=== PATIENT | female | born 1980 | race Caucasian/White ===

== ENCOUNTER 2018-01-09 11:12 | Emergency (ER) | payer OTHER ==
[~2018-01-09] VITALS: Ht 157.5 cm; Wt 81.2 kg
[~2018-01-09 11:12] MED LIST: GABA100 PO; STOMUL; VENL37.5 PO; ZIPR20
[2018-01-09] MEDS ORDERED: FLUO10 PO (11:21)
[2018-01-09] MEDS ORDERED: GABA100 PO (11:21)
[2018-01-09] MEDS ORDERED: ALBU90OI INH ×2 (11:37→11:53)
[2018-01-09 11:50] LABS: Influenza A Negative (NEGATIVE); Influenza B Negative (NEGATIVE)
[2018-01-09] MEDS ORDERED: BENZ100A PO (11:53)
[2018-01-09] MEDS ORDERED: Pseudoephedrine30 MG PO (11:53)
== END 2018-01-09 11:58 | disposition home or self-care (01) ==
LOC: ER 11:12
PROVIDERS: Psychiatry & Neurology Psychiatry
DX: J06.9 Acute upper respiratory infection, unspecified (principal); F20.9 Schizophrenia, unspecified; Z79.899 Other long term (current) drug therapy; Z87.891 Personal history of nicotine dependence
CPT/HCPCS: 71046; 87804; 94640; 99284

== ENCOUNTER 2018-01-19 09:41 | Day surgery (SDC) | payer OTHER ==
[~2018-01-19 09:41] MED LIST changes: +ALBU90OI INH; +BENZ100A PO; +FLUO10 PO; +Pseudoephedrine30 MG PO
== END 2018-01-19 22:38 | disposition home or self-care (01) ==
LOC: RAD 09:41 → MRI 11:00 → RAD 22:38
PROC: BQ31ZZZ Magnetic Resonance Imaging (MRI) of Left Hip (ICD-10-PCS; principal; 2018-01-19)
DX: M85.68 Other cyst of bone, other site (principal); M24.852 Other specific joint derangements of left hip, not elsewhere classified
CPT/HCPCS: 20610; 73722; 77002; A9577; Q9967

== ENCOUNTER 2018-07-28 08:59 | Emergency (ER) | payer OTHER ==
[~2018-07-28] VITALS: Ht 157.5 cm; Wt 81.7 kg
[2018-07-28] MEDS ORDERED: QVAR REDIHALE10.6 G1 (09:50)
[2018-07-28] MEDS ORDERED: AZIT250 PO (10:37)
[2018-07-28] MEDS ORDERED: Prednisone20 MG PO (10:37)
== END 2018-07-28 11:15 | disposition home or self-care (01) ==
LOC: ER 08:59
DX: J45.901 Unspecified asthma with (acute) exacerbation (principal); F20.9 Schizophrenia, unspecified; Z79.899 Other long term (current) drug therapy; Z79.51 Long term (current) use of inhaled steroids; Z87.891 Personal history of nicotine dependence
CPT/HCPCS: 71046; 94644

== ENCOUNTER 2018-08-03 09:51 | Emergency (ER) | payer OTHER ==
[~2018-08-03] VITALS: Ht 157.5 cm; Wt 82.5 kg
[~2018-08-03 09:51] MED LIST changes: +AZIT250 PO; +Prednisone20 MG PO; +QVAR REDIHALE10.6 G1
[2018-08-03] MEDS ORDERED: PRAZ2 PO (10:15)
[2018-08-03 11:10] LABS: Calcium, Ionized (POC) 1.17 mmol/L (1.10-1.46); Chloride (POC) 103 mmol/L (98-108); Creatinine (POC) 0.7 mg/dL (0.6-1.0); Glucose (ISTAT POC) 92 mg/dL (70-99); Hemoglobin (POC) 12.6 g/dL (12.0-16.0); Potassium (POC) 3.7 mmol/L (3.5-5.5); Sodium (POC) 141 mmol/L (135-148); Total CO2 (POC) 29 mmol/L (21-32)
== END 2018-08-03 13:14 | disposition home or self-care (01) ==
LOC: ER 09:51
PROVIDERS: Emergency Medicine
DX: R42 Dizziness and giddiness (principal); R55 Syncope and collapse; F20.9 Schizophrenia, unspecified; Z87.891 Personal history of nicotine dependence; Z79.899 Other long term (current) drug therapy
CPT/HCPCS: 80047; 85014; 96360; 96361; 99284; J7120

== ENCOUNTER 2020-08-02 10:53 | Emergency (ER) | payer OTHER ==
[~2020-08-02] VITALS: Ht 162.6 cm; Wt 79.8 kg
[~2020-08-02 10:53] MED LIST changes: +PRAZ2 PO
[2020-08-02 11:16] LABS: Source, Urine Clean Catch
[2020-08-02 11:41] LABS: BASOPHILS ABSOLUTE AUTO 0.04 K/mm3 (0.00-0.23); BASOPHILS PERCENT AUTO 1 % (0-2); EOSINOPHILS ABSOLUTE AUTO 0.26 K/mm3 (0.00-0.68); EOSINOPHILS PERCENT AUTO 4 % (0-6); Hematocrit 38.8 % (33.0-51.0); Hemoglobin 12.9 g/dL (11.5-16.0); IMMATURE GRAN ABSOLUTE AUTO 0.02 K/mm3 (0.00-0.10); IMMATURE GRAN PERCENT AUTO 0 % (0-1); LYMPHOCYTES ABSOLUTE AUTO 1.82 K/mm3 (0.84-5.20); LYMPHOCYTES PERCENT AUTO 25 % (21-46); MONOCYTES ABSOLUTE AUTO 0.55 K/mm3 (0.16-1.47); MONOCYTES PERCENT AUTO 8 % (4-13); Mean Corpuscular HGB 30.6 pg (26.0-34.0); Mean Corpuscular HGB Conc 33.2 g/dL (31.5-36.5); Mean Corpuscular Volume 92 fL (80-100); Mean Platelet Volume 9.4 fL (9.1-12.4); NEUTROPHILS ABSOLUTE AUTO 4.69 K/mm3 (1.96-9.15); NEUTROPHILS PERCENT AUTO 64 % (41-73); Platelet Count 219 K/mm3 (150-400); RDW Coefficient Variation 12.6 % (11.7-14.2); RDW Standard Deviation 42.2 fL (35.1-46.3); Red Blood Cell Count 4.22 M/mm3 (3.80-5.20); White Blood Cell Count 7.38 K/mm3 (4.00-11.30)
[2020-08-02 11:45] LABS: Bilirubin, Urine Neg (Neg); Blood, Urine Neg (Neg); Glucose Qualitative, Urine Neg (Neg); Ketones, Urine Neg (Neg); Leukocyte Esterase, Urine Neg (Neg); Nitrite, Urine Neg (Neg); Protein, Urine Neg (Neg); Specific Gravity, Urine 1.005 (1.003-1.022); Urobilinogen, Urine NORM (Normal)
[2020-08-02 11:51] LABS: Appearance, Urine Clear (Clear); Color, Urine Pale Yellow (P-Yellow)
[2020-08-02 12:02] LABS: Alanine Aminotransfer (ALT/SGP 21 U/L (12-78); Albumin/Globulin Ratio 1.1 (0.8-1.8); Alk Phos 56 U/L (50-136); Anion Gap 6 mmol/L (6-16); Aspartate Aminotrans (AST/SGOT 17 U/L (12-37); Blood Urea Nitrogen 16 mg/dL (8-24); Bun/Creatinine Ratio 21.6 (12.0-20.0); CO2, Blood 23 mmol/L (21-32); Calcium, Blood 9.6 mg/dL (8.5-10.1); Chloride, Blood 108 mmol/L (98-108); Creatinine, Blood 0.74 mg/dL (0.40-1.00); Globulin, Blood 3.5 g/dL (2.2-4.0); Glomerular Filtration Rate >60 (60-); Glucose, Blood 93 mg/dL (70-99); Potassium, Blood 4.3 mmol/L (3.5-5.5); Sodium, Blood 137 mmol/L (136-145); Total Protein, Blood 7.5 g/dL (6.4-8.2)
[2020-08-02] MEDS ORDERED: OXYB5 PO (14:05)
[2020-08-02] MEDS ORDERED: IBUP600 PO (14:05)
[2020-08-04 05:11] LABS: CHLAMYDIA TRACHOMATIS, NAA Negative (Negative); NEISSERIA GONORRHOEAE, NAA Negative (Negative)
== END 2020-08-02 14:21 | disposition home or self-care (01) ==
LOC: ER 10:53
PROVIDERS: Emergency Medicine
DX: R10.2 Pelvic and perineal pain (principal); R30.0 Dysuria; R51 Headache; R42 Dizziness and giddiness; R11.0 Nausea; R53.1 Weakness; F20.9 Schizophrenia, unspecified; Z87.442 Personal history of urinary calculi; Z79.899 Other long term (current) drug therapy; Z87.891 Personal history of nicotine dependence
CPT/HCPCS: 36415; 76770; 76856; 80053; 81003; 81025; 83690; 85025; 87491; 87591; 96374; 96375; 99284-25; J1885; J2405

== ENCOUNTER 2021-09-19 12:34 | Emergency (ER) | payer OTHER ==
[~2021-09-19] VITALS: Ht 157.5 cm; Wt 91.6 kg
[~2021-09-19 12:34] MED LIST changes: +IBUP600 PO; +OXYB5 PO
[2021-09-19 13:13] LABS: Source, Urine Clean Catch
[2021-09-19 13:25] LABS: Appearance, Urine Cloudy (Clear); Bilirubin, Urine Neg (Neg); Blood, Urine 5+ (Neg); Color, Urine Yellow (P-Yellow); Glucose Qualitative, Urine Neg (Neg); Ketones, Urine Neg (Neg); Leukocyte Esterase, Urine 3+ (Neg); Nitrite, Urine Pos (Neg); Protein, Urine 3+ (Neg); Urobilinogen, Urine 1+ (Normal)
[2021-09-19 13:43] LABS: BASOPHILS ABSOLUTE AUTO 0.07 K/mm3 (0.00-0.23); BASOPHILS PERCENT AUTO 1 % (0-2); EOSINOPHILS ABSOLUTE AUTO 0.27 K/mm3 (0.00-0.68); EOSINOPHILS PERCENT AUTO 2 % (0-6); IMMATURE GRAN ABSOLUTE AUTO 0.06 K/mm3 (0.00-0.10); IMMATURE GRAN PERCENT AUTO 1 % (0-1); LYMPHOCYTES PERCENT AUTO 17 % (21-46); MONOCYTES ABSOLUTE AUTO 0.67 K/mm3 (0.16-1.47); MONOCYTES PERCENT AUTO 6 % (4-13); Mean Corpuscular HGB Conc 34.1 g/dL (31.5-36.5); Mean Corpuscular Volume 91 fL (80-100); Mean Platelet Volume 9.2 fL (9.1-12.4); NEUTROPHILS ABSOLUTE AUTO 8.57 K/mm3 (1.96-9.15); NEUTROPHILS PERCENT AUTO 74 % (41-73); Platelet Count 258 K/mm3 (150-400); RDW Coefficient Variation 12.5 % (11.7-14.2); RDW Standard Deviation 41.1 fL (35.1-46.3); Red Blood Cell Count 4.51 M/mm3 (3.80-5.20); White Blood Cell Count 11.64 K/mm3 (4.00-11.30)
[2021-09-19 13:50] LABS: Alanine Aminotransfer (ALT/SGP 28 U/L (12-78); Albumin, Blood 3.9 g/dL (3.4-5.0); Alk Phos 62 U/L (50-136); Anion Gap 4 mmol/L (6-16); Aspartate Aminotrans (AST/SGOT 19 U/L (12-37); Bilirubin, Total 0.7 mg/dL (0.1-1.0); Blood Urea Nitrogen 7 mg/dL (8-24); Bun/Creatinine Ratio 9.5 (12.0-20.0); CO2, Blood 27 mmol/L (21-32); Calcium, Blood 9.3 mg/dL (8.5-10.1); Chloride, Blood 110 mmol/L (98-108); Creatinine, Blood 0.73 mg/dL (0.40-1.00); Globulin, Blood 3.9 g/dL (2.2-4.0); Glomerular Filtration Rate >60 (60-); Glucose, Blood 99 mg/dL (70-99); Potassium, Blood 4.1 mmol/L (3.5-5.5); Sodium, Blood 141 mmol/L (136-145); Total Protein, Blood 7.8 g/dL (6.4-8.2)
[2021-09-19 14:06] LABS: Red Blood Cells, Urine 25-50 /hpf (0-2); Squamous Epithelial Cells Few /hpf (Few); White Blood Cells, Urine 25-50 /hpf (0-5)
[2021-09-19 14:07] LABS: Bacteria Few /hpf; Mucus Light (0-Heavy)
[2021-09-19] MEDS ORDERED: CEPH500 PO (15:28)
== END 2021-09-19 15:55 | disposition home or self-care (01) ==
LOC: ER 12:34
PROVIDERS: Physician Assistant
DX: N39.0 Urinary tract infection, site not specified (principal); I95.9 Hypotension, unspecified; F20.9 Schizophrenia, unspecified; Z79.899 Other long term (current) drug therapy; Z87.891 Personal history of nicotine dependence
CPT/HCPCS: 36415; 74176; 80053; 81001; 81025; 83690; 85025; 87077; 87086; 87186; 96365; 96375; 99284-25; J0696; J1885; J2405; J7030

== ENCOUNTER 2021-10-07 09:48 | Emergency (ER) | payer OTHER ==
[~2021-10-07] VITALS: Ht 157.5 cm; Wt 91.6 kg
[~2021-10-07 09:48] MED LIST changes: +CEPH500 PO
[2021-10-07 10:11] LABS: Source, Urine Clean Catch
[2021-10-07 10:34] LABS: Appearance, Urine Clear (Clear); Bilirubin, Urine Neg (Neg); Blood, Urine 2+ (Neg); Color, Urine Yellow (P-Yellow); Glucose Qualitative, Urine Neg (Neg); Ketones, Urine Neg (Neg); Leukocyte Esterase, Urine 1+ (Neg); Nitrite, Urine Neg (Neg); Protein, Urine 1+ (Neg); Urobilinogen, Urine 1+ (Normal)
[2021-10-07 10:36] LABS: BASOPHILS ABSOLUTE AUTO 0.04 K/mm3 (0.00-0.23); BASOPHILS PERCENT AUTO 0 % (0-2); EOSINOPHILS ABSOLUTE AUTO 0.29 K/mm3 (0.00-0.68); EOSINOPHILS PERCENT AUTO 3 % (0-6); IMMATURE GRAN ABSOLUTE AUTO 0.04 K/mm3 (0.00-0.10); IMMATURE GRAN PERCENT AUTO 0 % (0-1); LYMPHOCYTES ABSOLUTE AUTO 1.77 K/mm3 (0.84-5.20); LYMPHOCYTES PERCENT AUTO 20 % (21-46); MONOCYTES ABSOLUTE AUTO 0.54 K/mm3 (0.16-1.47); MONOCYTES PERCENT AUTO 6 % (4-13); Mean Corpuscular HGB 30.7 pg (26.0-34.0); Mean Corpuscular HGB Conc 33.3 g/dL (31.5-36.5); Mean Corpuscular Volume 92 fL (80-100); Mean Platelet Volume 9.3 fL (9.1-12.4); NEUTROPHILS ABSOLUTE AUTO 6.28 K/mm3 (1.96-9.15); NEUTROPHILS PERCENT AUTO 70 % (41-73); Platelet Count 251 K/mm3 (150-400); RDW Coefficient Variation 12.5 % (11.7-14.2); RDW Standard Deviation 41.3 fL (35.1-46.3); Red Blood Cell Count 4.24 M/mm3 (3.80-5.20); White Blood Cell Count 8.96 K/mm3 (4.00-11.30)
[2021-10-07 10:49] LABS: Squamous Epithelial Cells Many /hpf (Few)
[2021-10-07 10:50] LABS: Amorphous Mod (0-Heavy); Bacteria Few /hpf; Mucus Light (0-Heavy)
[2021-10-07 11:05] LABS: Alanine Aminotransfer (ALT/SGP 27 U/L (12-78); Albumin, Blood 3.6 g/dL (3.4-5.0); Albumin/Globulin Ratio 0.9 (0.8-1.8); Alk Phos 66 U/L (50-136); Anion Gap 4 mmol/L (6-16); Aspartate Aminotrans (AST/SGOT 17 U/L (12-37); Bilirubin, Total 0.7 mg/dL (0.1-1.0); Blood Urea Nitrogen 13 mg/dL (8-24); CO2, Blood 25 mmol/L (21-32); Calcium, Blood 8.7 mg/dL (8.5-10.1); Chloride, Blood 108 mmol/L (98-108); Creatinine, Blood 0.77 mg/dL (0.40-1.00); Globulin, Blood 3.8 g/dL (2.2-4.0); Glomerular Filtration Rate >60 (60-); Glucose, Blood 108 mg/dL (70-99); Sodium, Blood 137 mmol/L (136-145); Total Protein, Blood 7.4 g/dL (6.4-8.2)
[2021-10-07] MEDS ORDERED: Diflucan150 MG PO (11:35)
== END 2021-10-07 11:44 | disposition home or self-care (01) ==
LOC: ER 09:48
PROVIDERS: Physician Assistant
DX: B37.3 Candidiasis of vulva and vagina (principal); I95.9 Hypotension, unspecified; F20.9 Schizophrenia, unspecified; Z79.899 Other long term (current) drug therapy; Z87.891 Personal history of nicotine dependence
CPT/HCPCS: 36415; 80053; 81001; 83690; 85025; 87086; 96374; 99283-25; J2405; J7030

== ENCOUNTER 2022-07-08 17:34 | Emergency (ER) | payer OTHER ==
[~2022-07-08] VITALS: Ht 157.5 cm; Wt 85.7 kg
[~2022-07-08 17:34] MED LIST changes: +Diflucan150 MG PO
[2022-07-08 19:06] LABS: Influenza A, PCR NEGATIVE (NEGATIVE); Influenza B, PCR NEGATIVE (NEGATIVE); Resp Syncytial Virus, PCR NEGATIVE (NEGATIVE); SARS-Cov-2 (COVID-19) PCR, MMC NEGATIVE (NEGATIVE)
[2022-07-08] MEDS ORDERED: Monodox100 MG PO (20:15)
== END 2022-07-08 20:34 | disposition home or self-care (01) ==
LOC: ER 17:34
PROVIDERS: Physician Assistant
DX: L03.116 Cellulitis of left lower limb (principal); R06.02 Shortness of breath; Z20.822 Contact with and (suspected) exposure to COVID-19; Z87.891 Personal history of nicotine dependence; Z79.899 Other long term (current) drug therapy
CPT/HCPCS: 0241U; 71046; A9270

== ENCOUNTER → 2023-04-27 | Outpatient (CLI) | payer OTHER ==
[~2023-04-27] MED LIST changes: +Monodox100 MG PO
[2023-04-28 10:39] LABS: Candida species (DNA Probe) Positive (NEGATIVE); G. vaginalis (DNA Probe) Positive (NEGATIVE); T. vaginalis (DNA Probe) Negative (NEGATIVE)
== END ==
LOC: LAB 13:48 → LAB SHORT 13:48
PROVIDERS: Family Medicine
DX: N89.8 Other specified noninflammatory disorders of vagina (principal)
CPT/HCPCS: 87480; 87510; 87660

== ENCOUNTER 2023-05-22 13:17 | Emergency (ER) | payer OTHER ==
[~2023-05-22] VITALS: Ht 157.5 cm; Wt 83.0 kg
[2023-05-22 13:52] LABS: BASOPHILS ABSOLUTE AUTO 0.03 K/mm3 (0.00-0.23); BASOPHILS PERCENT AUTO 1 % (0-2); EOSINOPHILS ABSOLUTE AUTO 0.22 K/mm3 (0.00-0.68); EOSINOPHILS PERCENT AUTO 4 % (0-6); Hematocrit 38.5 % (33.0-51.0); Hemoglobin 13.1 g/dL (11.5-16.0); IMMATURE GRAN ABSOLUTE AUTO 0.01 K/mm3 (0.00-0.10); IMMATURE GRAN PERCENT AUTO 0 % (0-1); LYMPHOCYTES ABSOLUTE AUTO 1.86 K/mm3 (0.84-5.20); LYMPHOCYTES PERCENT AUTO 33 % (21-46); MONOCYTES ABSOLUTE AUTO 0.49 K/mm3 (0.16-1.47); MONOCYTES PERCENT AUTO 9 % (4-13); Mean Corpuscular HGB 31.2 pg (26.0-34.0); Mean Corpuscular Volume 92 fL (80-100); Mean Platelet Volume 9.7 fL (9.1-12.4); NEUTROPHILS ABSOLUTE AUTO 3.04 K/mm3 (1.96-9.15); NEUTROPHILS PERCENT AUTO 54 % (41-73); Platelet Count 198 K/mm3 (150-400); RDW Coefficient Variation 12.7 % (11.7-14.2); RDW Standard Deviation 42.5 fL (35.1-46.3); White Blood Cell Count 5.65 K/mm3 (4.00-11.30)
[2023-05-22 14:00] LABS: Albumin, Blood 3.7 g/dL (3.4-5.0); Albumin/Globulin Ratio 1.1 (0.8-1.8); Bilirubin, Total 0.8 mg/dL (0.1-1.0); Bun/Creatinine Ratio 13.5 (12.0-20.0); Calcium, Blood 9.1 mg/dL (8.5-10.1); Creatinine, Blood 0.59 mg/dL (0.40-1.00); Globulin, Blood 3.3 g/dL (2.2-4.0); Potassium, Blood 3.6 mmol/L (3.5-5.5)
[2023-05-22] MEDS ORDERED: ONDA4ODT MM (15:54)
[2023-05-22 16:00] VITALS: BP 98/56
== END 2023-05-22 16:14 | disposition home or self-care (01) ==
LOC: ER 13:17
PROVIDERS: Student in an Organized Health Care Education/Training Program
DX: R55 Syncope and collapse (principal); R11.2 Nausea with vomiting, unspecified; Z79.51 Long term (current) use of inhaled steroids; Z79.2 Long term (current) use of antibiotics; Z79.899 Other long term (current) drug therapy; Z87.442 Personal history of urinary calculi; Z86.59 Personal history of other mental and behavioral disorders; Z87.891 Personal history of nicotine dependence
CPT/HCPCS: 76705; 80053; 85025; 93005; 93010; 96361; 96374; 99284-25; J2405; J7030

== ENCOUNTER 2023-07-05 17:55 | Inpatient (IN) | payer OTHER ==
[~2023-07-05] VITALS: Ht 160 cm; Wt 77.1 kg
[~2023-07-05 17:55] MED LIST changes: +ONDA4ODT MM
[2023-07-05 18:29] LABS: BASOPHILS ABSOLUTE AUTO 0.05 K/mm3 (0.00-0.23); BASOPHILS PERCENT AUTO 0 % (0-2); EOSINOPHILS ABSOLUTE AUTO 0.05 K/mm3 (0.00-0.68); EOSINOPHILS PERCENT AUTO 0 % (0-6); Hemoglobin 12.5 g/dL (11.5-16.0); IMMATURE GRAN ABSOLUTE AUTO 0.07 K/mm3 (0.00-0.10); IMMATURE GRAN PERCENT AUTO 1 % (0-1); LYMPHOCYTES ABSOLUTE AUTO 1.56 K/mm3 (0.84-5.20); LYMPHOCYTES PERCENT AUTO 13 % (21-46); MONOCYTES ABSOLUTE AUTO 1.14 K/mm3 (0.16-1.47); MONOCYTES PERCENT AUTO 10 % (4-13); Mean Corpuscular HGB 31.2 pg (26.0-34.0); Mean Corpuscular HGB Conc 34.7 g/dL (31.5-36.5); Mean Corpuscular Volume 90 fL (80-100); Mean Platelet Volume 8.8 fL (9.1-12.4); NEUTROPHILS ABSOLUTE AUTO 8.97 K/mm3 (1.96-9.15); NEUTROPHILS PERCENT AUTO 76 % (41-73); Platelet Count 294 K/mm3 (150-400); RDW Coefficient Variation 12.7 % (11.7-14.2); Red Blood Cell Count 4.01 M/mm3 (3.80-5.20); White Blood Cell Count 11.84 K/mm3 (4.00-11.30)
[2023-07-05 18:34] LABS: Source, Urine Clean Catch
[2023-07-05 18:43] LABS: Appearance, Urine Hazy (Clear); Blood, Urine 3+ (Neg); Color, Urine Amber (P-Yellow); Glucose Qualitative, Urine Neg (Neg); Ketones, Urine 3+ (Neg); Leukocyte Esterase, Urine 1+ (Neg); Nitrite, Urine Neg (Neg); Protein, Urine 2+ (Neg); Urobilinogen, Urine 4+ (Normal)
[2023-07-05 18:51] LABS: Influenza A, PCR NEGATIVE (NEGATIVE); Influenza B, PCR NEGATIVE (NEGATIVE); Resp Syncytial Virus, PCR NEGATIVE (NEGATIVE); SARS-Cov-2 (COVID-19) PCR, MMC NEGATIVE (NEGATIVE)
[2023-07-05 18:54] LABS: Bilirubin, Urine 1+ (Neg)
[2023-07-05 18:57] LABS: Squamous Epithelial Cells Many /hpf (Few)
[2023-07-05 18:58] LABS: Bacteria Many /hpf; Transitional Epithelial Cells Few /hpf (0-Rare)
[2023-07-05 19:01] LABS: Albumin, Blood 3.4 g/dL (3.4-5.0); Albumin/Globulin Ratio 0.8 (0.8-1.8); Bilirubin, Total 1.6 mg/dL (0.1-1.0); Bun/Creatinine Ratio 16.3 (12.0-20.0); Calcium, Blood 9.3 mg/dL (8.5-10.1); Creatinine, Blood 0.55 mg/dL (0.40-1.00); Globulin, Blood 4.5 g/dL (2.2-4.0); Potassium, Blood 3.7 mmol/L (3.5-5.5); Total Protein, Blood 7.9 g/dL (6.4-8.2)
[2023-07-05] MEDS ORDERED: CEFP200 PO (20:41)
[2023-07-06] VITALS (25 sets, daily range): BP systolic 66–115; BP diastolic 46–90
[2023-07-06] MEDS ORDERED: BUSP10 PO (01:41)
[2023-07-06 02:44] LABS: Bilirubin, Direct 0.4 mg/dL (0.0-0.3)
[2023-07-06 02:45] LABS: Thyroid Stimulating Hormone 0.233 uIU/mL (0.360-4.800)
[2023-07-06 03:35] LABS: BASOPHILS ABSOLUTE AUTO 0.03 K/mm3 (0.00-0.23); BASOPHILS PERCENT AUTO 0 % (0-2); EOSINOPHILS ABSOLUTE AUTO 0.07 K/mm3 (0.00-0.68); EOSINOPHILS PERCENT AUTO 1 % (0-6); Hematocrit 28.4 % (33.0-51.0); Hemoglobin 9.5 g/dL (11.5-16.0); IMMATURE GRAN ABSOLUTE AUTO 0.05 K/mm3 (0.00-0.10); IMMATURE GRAN PERCENT AUTO 1 % (0-1); LYMPHOCYTES ABSOLUTE AUTO 2.14 K/mm3 (0.84-5.20); LYMPHOCYTES PERCENT AUTO 29 % (21-46); MONOCYTES ABSOLUTE AUTO 1.13 K/mm3 (0.16-1.47); MONOCYTES PERCENT AUTO 15 % (4-13); Mean Corpuscular HGB 30.7 pg (26.0-34.0); Mean Corpuscular HGB Conc 33.5 g/dL (31.5-36.5); Mean Corpuscular Volume 92 fL (80-100); Mean Platelet Volume 9.2 fL (9.1-12.4); NEUTROPHILS PERCENT AUTO 55 % (41-73); Platelet Count 219 K/mm3 (150-400); RDW Standard Deviation 43.8 fL (35.1-46.3); Red Blood Cell Count 3.09 M/mm3 (3.80-5.20); White Blood Cell Count 7.52 K/mm3 (4.00-11.30)
[2023-07-06 03:54] LABS: Magnesium, Blood 1.9 mg/dL (1.6-2.4)
[2023-07-06 03:58] LABS: Albumin, Blood 2.5 g/dL (3.4-5.0); Albumin/Globulin Ratio 0.7 (0.8-1.8); Bun/Creatinine Ratio 18.7 (12.0-20.0); Calcium, Blood 7.7 mg/dL (8.5-10.1); Creatinine, Blood 0.54 mg/dL (0.40-1.00); Globulin, Blood 3.4 g/dL (2.2-4.0); Potassium, Blood 3.4 mmol/L (3.5-5.5); Total Protein, Blood 5.9 g/dL (6.4-8.2)
--- NOTE | 2023-07-06 06:51 | NUR ---
PATIENT ADMITTED TO ICU OVERNIGHT. AOX4 AND MOVES ALL EXTREMITIES. NSR. SYSTOLIC BP HAS BEEN IN THE 90'S WITH MAPS >65. LEVOPHED NOT STARTED. ROOM AIR. PATIENT ABLE TO AMBULATE TO BSC.
--- NOTE | 2023-07-06 07:00 | NUR ---
ASSUMPTION OF CARE PT IS ALERT AND ORIENTED WITH PLEASANT AFFECT. PT STANDBY ASSIST TO BEDSIDE COMMODE AND RECLINER, USES CALL LIGHT APPROPRIATELY. LR INFUSING AT 150ML/HR. SBP 90S-110S. SEE SHIFT ASSESSMENT.
[2023-07-06 12:37] LABS: Free Thyroxine 0.89 ng/dL (0.70-1.60); Triiodothyronine, Free 1.3 pg/mL (2.18-3.98)
--- NOTE | 2023-07-06 16:31 | NUR ---
UPDATE PT'S MOTHER AT BEDSIDE. PT CONTINUES TO RECEIVE LR 150ML/HR. SHE REMAINS ALERT AND ORIENTED. PT C/O INTERMITTENT TREMORS AND CHILLS. TMAX 101.4. TYLENOL GIVEN PER EMAR AND TRENDING DOWN. PT HAD ONE EPISODE OF FEELING SHORT OF BREATH. SPO2 98-99% ON RA AND RESOLVES QUICKLY. ONE EPISODE OF SHARP BACK PAIN. FULL BACK NONTENDER TO PALPATION AND PT STS IT MAY BE RELATED TO LYING DOWN TOO LONG. BP STABLE WITH MAP >65. SHE IS A STANDBY ASSIST AND CURRENTLY RESTING IN THE RECLINER. STOOL SAMPLE SENT TO LAB.
--- NOTE | 2023-07-06 17:39 | NUR ---
TRANSFER PT TRANSFERRED VIA WHEELCHAIR TO ROOM 336. CELL PHONE WITH PT. STANDBY ASSIST TO NEW BED. RN AT BEDSIDE UPON ARRIVAL.
[2023-07-06 17:42] LABS: Adenovirus F 40/41 Not Detected (NOT DETECT); Astrovirus Not Detected (NOT DETECT); Campylobacter Sp Not Detected (NOT DETECT); Cryptosporidium Not Detected (NOT DETECT); Cyclospora Cayetanensis Not Detected (NOT DETECT); E. Coli O157 Not Detected (NOT DETECT); Entamoeba Histolytica Not Detected (NOT DETECT); Enteroaggregative E. coli-EAEC Not Detected (NOT DETECT); Enteropathogenic E. coli-EPEC Not Detected (NOT DETECT); Enterotoxigenic E. coli-ETEC Not Detected (NOT DETECT); Giardia Lamblia Not Detected (NOT DETECT); Norovirus GI/GII Not Detected (NOT DETECT); Plesiomonas Shigelloides Not Detected (NOT DETECT); Rotavirus A Not Detected (NOT DETECT); Salmonella Sp Detected (NOT DETECT); Sapovirus Not Detected (NOT DETECT); Shiga Toxin-prod E. coli-STEC Not Detected (NOT DETECT); Shigella/Enteroin E. coli-EIEC Not Detected (NOT DETECT); Vibrio Cholerae Not Detected (NOT DETECT); Vibrio Sp Not Detected (NOT DETECT); Yersinia Enterocolitica Not Detected (NOT DETECT)
--- NOTE | 2023-07-06 18:26 | NUR ---
PATIENT IS ALERT AND ORIENTED AND COOPERATIVE WITH CARE. PATIENT WAS TRANSFERRED FROM ICU 5 TO ROOM 336 THIS AFTERNOON. ON RA. VSS. NO COMPLAINTS OF PAIN. LR RUNNING AT 150 ML/HR. WILL CONTINUE TO MONITOR
--- NOTE | 2023-07-06 18:31 | NUR ---
STOOL SAMPLE RESULT CALLED IN TO DR. CHÁVEZ AT 1832.
--- NOTE | 2023-07-06 19:43 | NUR ---
HYPOTENSION/PHYSICIAN CONTACT PT BP 82/47. MAP OF 59. HR 70. PT STATES SHE IS SLIGHTLY DIZZY WHEN LOOKING AROUND QUICKLY. DR. AGUILA NOTIFIED. STATED THAT SHE WILL PLACE ORDERS FOR A FLUID BOLUS. AWAITING ORDERS. PT CURRENTLY SITTING IN BED ORIENTED AND UPDATED ON THE PLAN OF CARE.
--- NOTE | 2023-07-06 20:55 | NUR ---
BP IMPROVED TO 85/51. DR. AGUILA NOTIFIED THAT BP HAS IMPROVED AFTER THE 500CC BOLUS TO 85/51. MAP OF 63. MAINTANCE FLUIDS RUNNING AT 100ML/HR. NO NEW ORDERS AT THIS TIME. PT EDUCATED TO STAY IN BED UNLESS STAFF MEMBER IS WITH HER TO AVOID FALLS. PT STATES SHE UNDERSTANDS.
[2023-07-07] VITALS (8 sets, daily range): BP systolic 87–107; BP diastolic 51–67
[2023-07-07 05:15] LABS: BASOPHILS ABSOLUTE AUTO 0.03 K/mm3 (0.00-0.23); BASOPHILS PERCENT AUTO 1 % (0-2); EOSINOPHILS ABSOLUTE AUTO 0.16 K/mm3 (0.00-0.68); EOSINOPHILS PERCENT AUTO 3 % (0-6); Hematocrit 24.4 % (33.0-51.0); Hemoglobin 8.1 g/dL (11.5-16.0); IMMATURE GRAN ABSOLUTE AUTO 0.03 K/mm3 (0.00-0.10); IMMATURE GRAN PERCENT AUTO 1 % (0-1); LYMPHOCYTES ABSOLUTE AUTO 2.16 K/mm3 (0.84-5.20); LYMPHOCYTES PERCENT AUTO 38 % (21-46); MONOCYTES PERCENT AUTO 11 % (4-13); Mean Corpuscular HGB 30.8 pg (26.0-34.0); Mean Corpuscular HGB Conc 33.2 g/dL (31.5-36.5); Mean Corpuscular Volume 93 fL (80-100); Mean Platelet Volume 9.4 fL (9.1-12.4); NEUTROPHILS ABSOLUTE AUTO 2.73 K/mm3 (1.96-9.15); NEUTROPHILS PERCENT AUTO 48 % (41-73); Platelet Count 258 K/mm3 (150-400); RDW Coefficient Variation 13.2 % (11.7-14.2); RDW Standard Deviation 45.1 fL (35.1-46.3); Red Blood Cell Count 2.63 M/mm3 (3.80-5.20); White Blood Cell Count 5.71 K/mm3 (4.00-11.30)
[2023-07-07 05:42] LABS: Albumin, Blood 2.5 g/dL (3.4-5.0); Albumin/Globulin Ratio 0.8 (0.8-1.8); Bilirubin, Total 0.4 mg/dL (0.1-1.0); Bun/Creatinine Ratio 13.1 (12.0-20.0); Creatinine, Blood 0.54 mg/dL (0.40-1.00); Globulin, Blood 3.3 g/dL (2.2-4.0); Total Protein, Blood 5.8 g/dL (6.4-8.2)
--- NOTE | 2023-07-07 06:10 | NUR ---
SHIFT SUMMARY HYPOTENSION WITH A SBP IN THE 80S AT THE START OF SHIFT. SEE NOTES. BOLUS GIVEN AND MAINTANCE FLUIDS CURRENTLY RUNNING X1 BAG. LAST BP IMPROVED TO 100/6O. TEMP OF 100.5 AND HEADACHE TREATED WITH TYLENOL THIS AM. PT C/O OCCATIONAL DIZZINESS WHEN MOVING HER HEAD AROUND, BUT STATED THIS IS AN ONGOING PROBLEM PRIOR TO ADMISSION WELL. PT CALLED WHEN NEEDING TO USE THE BATHROOM T/O NIGHT. PTS MOTHER STAYED IN THE ROOM OVERNIGHT WELL. NO OTHER ACUTE CHANGES IN ASSESSMENT AT THIS TIME. VS REVIEWED. CALL LIGHT IN REACH. PT RESTING IN BED AT THIS TIME. DENIES OTHER NEEDS CURRENTLY
[2023-07-07 09:13] LABS: Stool Occult Blood Guaiac 1 Neg (Neg)
--- NOTE | 2023-07-08 04:40 | NUR ---
SHIFT SUMMARY REPORT RECEIVED VERIFIED A/O MOTHER AT BEDSIDE, C/O HEADACHE AND TREATED WITH TYLENOL. NIGHT VERY UNEVENTFUL, MOTHER AND DAUGHTER AMBULATED DOWN THE HA FOR ABOUT 30 MIN, PT DID VERY WELL SHOWED NO S/S OF LOW BP. PT SLEEPING.
[2023-07-08 05:41] LABS: BASOPHILS ABSOLUTE AUTO 0.03 K/mm3 (0.00-0.23); BASOPHILS PERCENT AUTO 1 % (0-2); EOSINOPHILS ABSOLUTE AUTO 0.12 K/mm3 (0.00-0.68); EOSINOPHILS PERCENT AUTO 2 % (0-6); Hematocrit 26.6 % (33.0-51.0); Hemoglobin 8.6 g/dL (11.5-16.0); IMMATURE GRAN ABSOLUTE AUTO 0.02 K/mm3 (0.00-0.10); IMMATURE GRAN PERCENT AUTO 0 % (0-1); LYMPHOCYTES ABSOLUTE AUTO 2.27 K/mm3 (0.84-5.20); LYMPHOCYTES PERCENT AUTO 46 % (21-46); MONOCYTES ABSOLUTE AUTO 0.41 K/mm3 (0.16-1.47); MONOCYTES PERCENT AUTO 8 % (4-13); Mean Corpuscular HGB 30.4 pg (26.0-34.0); Mean Corpuscular HGB Conc 32.3 g/dL (31.5-36.5); Mean Corpuscular Volume 94 fL (80-100); Mean Platelet Volume 9.1 fL (9.1-12.4); NEUTROPHILS ABSOLUTE AUTO 2.05 K/mm3 (1.96-9.15); NEUTROPHILS PERCENT AUTO 42 % (41-73); Platelet Count 265 K/mm3 (150-400); RDW Coefficient Variation 13.1 % (11.7-14.2); RDW Standard Deviation 45.3 fL (35.1-46.3); Red Blood Cell Count 2.83 M/mm3 (3.80-5.20)
[2023-07-08 06:03] VITALS: BP 122/64
[2023-07-08 07:22] VITALS: BP 116/74
--- NOTE | 2023-07-08 07:30 | NUR ---
ASSUMED CARE: PT RESTING IN BED. STATED SHE HAD A HEADACHE 07/19. PT'S MOTHER AT BEDSIDE AND STATES THAT WHEN PT'S BP ELEVATES BEYOND HER BASELINE SHE GETS HEADACHES. STATES BASELINE IS 80S-90S SYSTOLIC. CURRENT BP IS 116 SYSTOLIC. MEDICATED PER EMAR. DENIES FURTHER NEEDS AT THIS TIME.
[2023-07-08] MEDS ORDERED: LACT PO (11:23)
[2023-07-08] MEDS ORDERED: LEVFLO500 PO (11:23)
--- NOTE | 2023-07-08 11:46 | NUR ---
DISCHARGE INSTRUCTIONS PROVIDED REGARDING MEDICATIONS AND FOLLOW UP APPOINTMENTS. PT STATES SHE HAS GI APPOINTMENT THIS AFTERNOON AND PCP APPOINTMENT NEXT WEEK. IV'S DC'D WNL. DENIES FURTHER NEEDS OR CONCERNS AT THIS TIME.
[2023-07-08 14:12] LABS: T-TRANSGLUTAMINASE (TTG) IGA 4 U/mL (0-3); T-TRANSGLUTAMINASE (TTG) IGG <2 U/mL (0-5)
== END 2023-07-08 11:50 | disposition home or self-care (01) | DRG 871 ==
LOC: ER 17:55 → ICUE 17:56 → PCU 17:56 → ICUE 07-06 01:15 → MEDS 07-06 17:03 → ENPENDDIS 07-08 11:05 → MEDS 07-08 11:50
PROVIDERS: Family Medicine; Student in an Organized Health Care Education/Training Program; ADMIT Student in an Organized Health Care Education/Training Program
PROC: 3E03329 Introduction of Other Anti-infective into Peripheral Vein, Percutaneous Approach (ICD-10-PCS; principal; 2023-07-05)
PROC: 3E033XZ Introduction of Vasopressor into Peripheral Vein, Percutaneous Approach (ICD-10-PCS; 2023-07-05)
DX: A02.1 Salmonella sepsis (principal); R65.21 Severe sepsis with septic shock; N12 Tubulo-interstitial nephritis, not specified as acute or chronic; A02.0 Salmonella enteritis; E80.6 Other disorders of bilirubin metabolism; E83.51 Hypocalcemia; E87.6 Hypokalemia; D64.9 Anemia, unspecified; Z20.822 Contact with and (suspected) exposure to COVID-19; E86.1 Hypovolemia; F20.9 Schizophrenia, unspecified; K76.9 Liver disease, unspecified; Z87.442 Personal history of urinary calculi; Z79.899 Other long term (current) drug therapy; Z79.51 Long term (current) use of inhaled steroids; Z87.891 Personal history of nicotine dependence; Z98.891 History of uterine scar from previous surgery; Z90.89 Acquired absence of other organs; Z79.2 Long term (current) use of antibiotics
CPT/HCPCS: 0241U; 36415; 71046; 80053; 81001; 81025; 82248; 82272; 82533; 82728; 83540; 83550; 83605; 83735; 83993; 84439; 84443; 84481; 85025; 86364; 87040; 87086; 87507; 96361; 96365; 96366; 96372; 99284-25; A9270; G0378; J0696; J1650; J2405; J7030; J7040; J7060; J7120

== ENCOUNTER 2023-09-11 11:53 | Day surgery (SDC) | payer OTHER ==
[2023-09-11] VITALS (28 sets, daily range): BP systolic 75–118; BP diastolic 32–105
[~2023-09-11] VITALS: Ht 160 cm; Wt 77.9 kg
[~2023-09-11 11:53] MED LIST changes: +BACLOFEN5 M1 PO; +BUSP10; +BUSP10 PO; +CEFP200 PO; +DULO30 PO; +Diflucan100 MG PO; +ESCI20 PO; +ESTRADIOL1 EAC2 TOP; +LACT PO; +LEVFLO500 PO; +MONT10T PO; +OMEP20ER PO; +TAMS.4ER PO; +TRAZ50 PO; +ZOCOR20 MG PO
--- NOTE | 2023-09-11 13:01 | NUR ---
History, Chart, Medications and Allergies reviewed before start of procedure. Lungs clear T/O to Auscultation. Patient confirms NPO status and agrees with scheduled surgery. Pre-Op teaching done. Pt verbalizes understanding. Patient States Post-Procedure ride home has been arranged.
--- NOTE | 2023-09-11 14:17 | NUR ---
09/11/23 1417 Hema Daniels HISTORY, CHART, MEDICATIONS AND ALLERGIES REVIEWED BEFORE START OF PROCEDURE. PATIENT CONFIRMS NPO STATUS AND AGREES WITH SCHEDULED PROCEDURE. 3-LEAD EKG REVIEWED WITH PHYSICIAN PRIOR TO START OF PROCEDURE. MONITOR INTACT WITH CONTINUOUS PULSE OXIMETRY,CAPNOGRAPHY, 3-LEAD EKG, INTERMITTENT BP. SUPPLEMENTAL O2 TO BE TITRATED THROUGHOUT PROCEDURE TO MAINTAIN O2 SATURATION ABOVE 90%. PATIENT DETERMINED TO BE ASA APPROPRIATE FOR PROPOFOL SEDATION PRIOR TO START OF PROCEDURE BY DR. JERNIGAN.
--- NOTE | 2023-09-11 15:06 | NUR ---
Discharge instructions reviewed with patient. Patient verbalizes understanding. Copy given to patient to take home. PT BP LOW BUT AT BASELINE, DENIES DIZZINESS, LIGHTHEADEDNESS. PT DRESSED. Discharged via wheelchair to private car for ride home.
== END 2023-09-11 15:07 | disposition home or self-care (01) ==
LOC: ORSCMMR 11:53 → ORSCSDS 13:30 → ORSCMMR 14:00 → ORSCSDS 14:00 → ORSCMMR 15:07
DX: K62.5 Hemorrhage of anus and rectum (principal); R11.2 Nausea with vomiting, unspecified; R10.13 Epigastric pain; D12.3 Benign neoplasm of transverse colon; K64.4 Residual hemorrhoidal skin tags; K29.70 Gastritis, unspecified, without bleeding; K31.89 Other diseases of stomach and duodenum; K52.9 Noninfective gastroenteritis and colitis, unspecified; F43.10 Post-traumatic stress disorder, unspecified; F20.9 Schizophrenia, unspecified; D64.9 Anemia, unspecified; Z79.899 Other long term (current) drug therapy
CPT/HCPCS: 88305; 88342; J2250; J2704; J7120

== ENCOUNTER 2023-10-19 07:21 | Day surgery (SDC) | payer OTHER ==
[2023-10-19] VITALS (14 sets, daily range): BP systolic 87–117; BP diastolic 40–91
[~2023-10-19] VITALS: Ht 157.5 cm; Wt 78.8 kg
[~2023-10-19 07:21] MED LIST changes: -BUSP10; +ONDA4 PO
[2023-10-19] MEDS ORDERED: PROBIOTIC1 EA14 (08:06)
[2023-10-19] MEDS ORDERED: MIRALAX17 GM (08:07)
--- NOTE | 2023-10-19 08:30 | NUR ---
Ambulatory in Day Surgery Patient confirms NPO status and agrees with scheduled surgery. Pre-Op teaching done. Pt verbalizes understanding. History, Chart, Medications and Allergies reviewed before start of procedure.Patient States Post-Procedure ride home has been arranged.
--- NOTE | 2023-10-19 12:30 | NUR ---
1220- UP TO BR TO VOID. PATIENT VOIDED WITHOUT DIFFICULTY. DENIES NAUSEA. TOLERATING PO FLUIDS AND APPLESAUCE. STATES PAIN TO SURGICAL SITE ANUS/RECTUM 6/10 AND TOLERABLE. PATIENT RECEIVED ORAL ANALGESIC AFTER EATING APPLESAUCE. VSS. PATIENT REPORTS HAVING LOWER BP NORAMAL FOR HER. DENIES DIZZINESS UPON STANDING. GAIT STEADY. DISCHARGE INSTRUCTIONS REVIEWED WITH PATIENT INCLUDING HOW TO TAKE A SITZ BATH. PATIENT'S PRESCRIPTION GIVEN TO PATIENT'S MOMUNA. UNA TO FILL AT [facility]. COPY OF DISCHARGE INSTRUCTIONS AND MEDICATION LIST GIVEN TO PATIENT. QUARTER SIZE LIGHT RED DRAINAGE NOTED TO GAUZE COVERING SURGERY SITE. MOMUNA TO DRIVE HOME.
== END 2023-10-19 12:41 | disposition home or self-care (01) ==
LOC: ORSCMMR 07:21 → ORD 09:00 → ORSCMMR 12:41
PROVIDERS: Surgery
PROC: 06BY0ZC Excision of Hemorrhoidal Plexus, Open Approach (ICD-10-PCS; principal; 2023-10-19 09:00)
DX: K64.4 Residual hemorrhoidal skin tags (principal); K62.5 Hemorrhage of anus and rectum; F43.10 Post-traumatic stress disorder, unspecified; F41.9 Anxiety disorder, unspecified; F20.9 Schizophrenia, unspecified; J45.909 Unspecified asthma, uncomplicated; Z79.899 Other long term (current) drug therapy
CPT/HCPCS: 88304; A9270; J0690; J2250; J2704; J3010; J7120

== ENCOUNTER 2024-02-27 07:19 | Observation (INO) | payer OTHER ==
[~2024-02-27] VITALS: Ht 157.5 cm; Wt 64.0 kg
[~2024-02-27 07:19] MED LIST changes: +DULO60 PO; +MIRALAX17 GM PO; +PROBIOTIC1 EA14
[2024-02-27] MEDS ORDERED: Ondansetron HCl 2 MG / ML 2ML Vial IV ONE ×2 (07:35→09:05)
[2024-02-27] MEDS ORDERED: NS 1,000 ML IV SCH ×3 (07:35→14:20)
[2024-02-27 07:58] LABS: BASOPHILS ABSOLUTE AUTO 0.01 K/mm3 (0.00-0.23); BASOPHILS PERCENT AUTO 0 % (0-2); EOSINOPHILS ABSOLUTE AUTO 0.05 K/mm3 (0.00-0.68); EOSINOPHILS PERCENT AUTO 1 % (0-6); Hematocrit 41.6 % (33.0-51.0); Hemoglobin 14.1 g/dL (11.5-16.0); IMMATURE GRAN ABSOLUTE AUTO 0.03 K/mm3 (0.00-0.10); IMMATURE GRAN PERCENT AUTO 0 % (0-1); LYMPHOCYTES ABSOLUTE AUTO 0.79 K/mm3 (0.84-5.20); LYMPHOCYTES PERCENT AUTO 11 % (21-46); MONOCYTES ABSOLUTE AUTO 0.73 K/mm3 (0.16-1.47); MONOCYTES PERCENT AUTO 10 % (4-13); Mean Corpuscular HGB 30.9 pg (26.0-34.0); Mean Corpuscular HGB Conc 33.9 g/dL (31.5-36.5); Mean Corpuscular Volume 91 fL (80-100); NEUTROPHILS ABSOLUTE AUTO 5.38 K/mm3 (1.96-9.15); NEUTROPHILS PERCENT AUTO 77 % (41-73); Platelet Count 163 K/mm3 (150-400); RDW Coefficient Variation 12.9 % (11.7-14.2); RDW Standard Deviation 43.3 fL (35.1-46.3); Red Blood Cell Count 4.57 M/mm3 (3.80-5.20); White Blood Cell Count 6.99 K/mm3 (4.00-11.30)
[2024-02-27 08:19] LABS: Albumin, Blood 3.5 g/dL (3.4-5.0); Albumin/Globulin Ratio 0.8 (0.8-1.8); Bun/Creatinine Ratio 12.5 (12.0-20.0); Calcium, Blood 9.3 mg/dL (8.5-10.1); Creatinine, Blood 0.8 mg/dL (0.40-1.00); Globulin, Blood 4.4 g/dL (2.2-4.0); Potassium, Blood 4.2 mmol/L (3.5-5.5); Total Protein, Blood 7.9 g/dL (6.4-8.2)
[2024-02-27 08:38] LABS: Influenza A, PCR NEGATIVE (NEGATIVE); Influenza B, PCR NEGATIVE (NEGATIVE); Resp Syncytial Virus, PCR NEGATIVE (NEGATIVE); SARS-Cov-2 (COVID-19) PCR, MMC NEGATIVE (NEGATIVE)
[2024-02-27] MEDS ORDERED: PRED20 PO (08:45)
[2024-02-27] MEDS ORDERED: ALBU90OI INH (08:45)
[2024-02-27] MEDS ORDERED: Ketorolac Tromethamine 30mg Vial IV ONE (09:05)
[2024-02-27] MEDS ORDERED: Albuterol 2.5 MG/3 ML VIAL INH SCH ×2 (10:50→12:35)
[2024-02-27] MEDS ORDERED: Dexamethasone Sod Phos 10 MG/ML 1ML VIAL IV ONE (12:35)
[2024-02-27 14:15] LABS: Adenovirus Not Detected (NOT DETECT); Bordetella pertussis Not Detected (NOT DETECT); Chlamydophila pneumoniae Not Detected (NOT DETECT); Coronavirus 229E Not Detected (NOT DETECT); Coronavirus HKU1 Not Detected (NOT DETECT); Coronavirus NL63 Not Detected (NOT DETECT); Coronavirus OC43 Not Detected (NOT DETECT); Human Metapneumovirus Detected (NOT DETECT); Human Rhinovirus/Enterovirus Not Detected (NOT DETECT); Influenza A/2009-H1 Not Detected (NOT DETECT); Influenza A/H1 Not Detected (NOT DETECT); Influenza A/H3 Not Detected (NOT DETECT); Influenza B Not Detected (NOT DETECT); Mycoplasma pneumoniae Not Detected (NOT DETECT); Parainfluenza Virus 1 Not Detected (NOT DETECT); Parainfluenza Virus 2 Not Detected (NOT DETECT); Parainfluenza Virus 3 Not Detected (NOT DETECT); Parainfluenza Virus 4 Not Detected (NOT DETECT); Respiratory Syncytial Virus Not Detected (NOT DETECT); SARS-Cov-2 (COVID-19), BioFire Not Detected (NOT DETECT)
[2024-02-27] MEDS ORDERED: Ondansetron HCl 2 MG / ML 2ML Vial IV PRN (14:20)
[2024-02-27] MEDS ORDERED: Albuterol 2.5 MG/3 ML VIAL INH PRN (14:20)
[2024-02-27] MEDS ORDERED: TraZODone HCl 50 MG Tab PO PRN (14:25)
[2024-02-27] MEDS ORDERED: Acetaminophen 325 MG TABLET PO PRN (14:25)
[2024-02-27] MEDS ORDERED: CefTRIAXone Sodium 1,000 MG in NS 100 ML IV SCH (14:37)
[2024-02-27] MEDS ORDERED: Metoprolol Tartrate 25 MG Tab PO SCH (15:00)
[2024-02-27 16:42] VITALS: BP 102/55
[2024-02-27] MEDS ORDERED: Estradiol 0.025 MG/24 Patch TOP SCH (19:00)
--- NOTE | 2024-02-27 19:07 | NUR ---
SHIFT SUMMARY/ ADMISSION NOTE PT ADMITTED THIS SHIFT. PT ARRIVED TO ROOM AT 1620 WITH HER MOTHER PRESENT. PT UP TO BSC WITH 2 ASSIST BUT PT'S LEGS "GAVE OUT" BUT PT WAS ABLE TO STAND AND DID NOT FALL. VSS, THOUGH PULSE 105 PER CONSTRUCTION RECRUITER AND BP 102/55. PT AXO, PLEASANT AND COOPERATIVE WITH CARE. ADMISSION COMPLETED. PT ON 2L JUDD NC, 96%. DR FITCH NOTIFIED THAT PT USES CPAP AT HOME AND ORDERED FOR TONIGHT. REPORT GIVEN TO PATIENT ACCOUNTS CLERK NURSE WHO ASSUMES CARE AT THIS TIME. NS INFUSING PER EMAR. BED IN LOW POSITION, CALL LIGHT WITH REACH.
[2024-02-27 19:23] VITALS: BP 110/62
[2024-02-27] MEDS ORDERED: GuaiFENesin 600 MG TabCR PO SCH (21:00)
[2024-02-27] MEDS ORDERED: BusPIRone HCl 10 MG Tab PO SCH (21:00)
[2024-02-27] MEDS ORDERED: Baclofen 10 MG Tab PO SCH (21:00)
[2024-02-27] MEDS ORDERED: Lactobacil 2-S.Thermo-Bifido 1 1 Cap PO SCH (21:00)
[2024-02-28 03:33] VITALS: BP 107/69
[2024-02-28 05:12] LABS: BASOPHILS ABSOLUTE AUTO 0.01 K/mm3 (0.00-0.23); BASOPHILS PERCENT AUTO 0 % (0-2); EOSINOPHILS PERCENT AUTO 0 % (0-6); Hematocrit 35.5 % (33.0-51.0); Hemoglobin 11.9 g/dL (11.5-16.0); IMMATURE GRAN ABSOLUTE AUTO 0.03 K/mm3 (0.00-0.10); IMMATURE GRAN PERCENT AUTO 0 % (0-1); LYMPHOCYTES ABSOLUTE AUTO 0.69 K/mm3 (0.84-5.20); LYMPHOCYTES PERCENT AUTO 10 % (21-46); MONOCYTES ABSOLUTE AUTO 0.58 K/mm3 (0.16-1.47); MONOCYTES PERCENT AUTO 9 % (4-13); Mean Corpuscular HGB 30.3 pg (26.0-34.0); Mean Corpuscular HGB Conc 33.5 g/dL (31.5-36.5); Mean Corpuscular Volume 90 fL (80-100); Mean Platelet Volume 9.3 fL (9.1-12.4); NEUTROPHILS ABSOLUTE AUTO 5.43 K/mm3 (1.96-9.15); NEUTROPHILS PERCENT AUTO 81 % (41-73); Platelet Count 180 K/mm3 (150-400); RDW Coefficient Variation 12.9 % (11.7-14.2); RDW Standard Deviation 43.2 fL (35.1-46.3); Red Blood Cell Count 3.93 M/mm3 (3.80-5.20); White Blood Cell Count 6.74 K/mm3 (4.00-11.30)
[2024-02-28 05:47] LABS: Albumin, Blood 3.1 g/dL (3.4-5.0); Albumin/Globulin Ratio 0.8 (0.8-1.8); Bilirubin, Total 0.5 mg/dL (0.1-1.0); Bun/Creatinine Ratio 18.2 (12.0-20.0); Calcium, Blood 9.1 mg/dL (8.5-10.1); Creatinine, Blood 0.5 mg/dL (0.40-1.00); Globulin, Blood 3.9 g/dL (2.2-4.0); Potassium, Blood 4.3 mmol/L (3.5-5.5)
[2024-02-28] MEDS ORDERED: Omeprazole 20 MG CapCR PO SCH (06:00)
--- NOTE | 2024-02-28 06:11 | NUR ---
SHIFT SUMMARY PEG WAS ALERT AND FULLY ORIENTED ON ASSESSMENT. USING 1-2 L O2 VIA NC, ON CONT BIOX, SATTING >90, CPAP FOR SLEEP W/ 1L BLEED IN. PT AMBULATES W/2 ASSIST AT THIS TIME. PT HAVING COUGHING FITS, AND SOME CRACKLES NOTED IN BILATERAL LUNG BASES. PT DESCRIBES FROTHY SPUTUM THAT SHE IS UNABLE TO COUGH OUT. NO CHANGES TO CONDITION TONIGHT. PT RESTS IN BED AT A LOW POSITION WITH CALL LIGHT IN REACH.
[2024-02-28 07:39] VITALS: BP 97/57
[2024-02-28] MEDS ORDERED: Atorvastatin 10 MG Tab PO SCH (09:00)
[2024-02-28] MEDS ORDERED: DULoxetine HCL 30 MG Cap DR PO SCH (09:00)
[2024-02-28] MEDS ORDERED: Polyethylene Glycol 3350 17 gm PO SCH (09:00)
[2024-02-28] MEDS ORDERED: Enoxaparin 40 MG/0.4 ML SYR SC SCH (09:00)
[2024-02-28] MEDS ORDERED: ACET325 PO (12:38)
[2024-02-28] MEDS ORDERED: GUAI600T33 PO (12:39)
--- NOTE | 2024-02-28 14:43 | NUR ---
[id number] PT PICKED UP BY HER MOM FOR DC. PT LEFT IN STABLE CONDITION WITH ALL BELONGINGS.
== END 2024-02-28 13:38 | disposition home or self-care (01) ==
LOC: ER 07:19 → MEDS 07:20
PROVIDERS: Emergency Medicine; ADMIT Internal Medicine
DX: J96.01 Acute respiratory failure with hypoxia (principal); B97.81 Human metapneumovirus as the cause of diseases classified elsewhere; J40 Bronchitis, not specified as acute or chronic; F20.9 Schizophrenia, unspecified; R10.9 Unspecified abdominal pain; G89.29 Other chronic pain; E86.0 Dehydration; Z79.899 Other long term (current) drug therapy
CPT/HCPCS: 0202U; 0241U; 36415; 71045; 80053; 85025; 85379; 94644; 94645; 94660; 94664; 94761; 94762; 96361; 96365; 96372; 96375; 96376; 99285-25; A9270; G0378; J0696; J1100; J1650; J1885; J2405; J7030

== ENCOUNTER 2024-08-01 01:40 | Emergency (ER) | payer OTHER ==
[~2024-08-01] VITALS: Ht 157.5 cm; Wt 78.9 kg
[~2024-08-01 01:40] MED LIST changes: +ACET325 PO; +GUAI600T33 PO; +PRED20 PO
[2024-08-01] MEDS ORDERED: Ondansetron HCl 2 MG / ML 2ML Vial IV ONE (03:35)
[2024-08-01] MEDS ORDERED: FentaNYL Citrate 50 MCG/ML 2 ML Injection IV ONE ×2 (03:35→05:15)
[2024-08-01] MEDS ORDERED: Propofol 10mg/ml 20 ml Vial (Procedural) IV SCH ×2 (03:40→07:25)
[2024-08-01] MEDS ORDERED: Ketamine HCl 100 MG / ML 5ML Vial IV SCH (03:55)
[2024-08-01] MEDS ORDERED: NS 1,000 ML IV SCH (03:55)
[2024-08-01] MEDS ORDERED: HYDROmorphone HCl/Pf 1MG SYR IV ONE (07:05)
[2024-08-01 07:32] VITALS: BP 116/64
[2024-08-01] MEDS ORDERED: Ketamine HCl 100 MG / ML 5ML Vial IV ONE (07:35)
== END 2024-08-01 08:45 | disposition home or self-care (01) ==
LOC: ER 01:40
DX: T84.020A Dislocation of internal right hip prosthesis, initial encounter (principal); X58.XXXA Exposure to other specified factors, initial encounter; J45.20 Mild intermittent asthma, uncomplicated; Z79.899 Other long term (current) drug therapy; Z96.643 Presence of artificial hip joint, bilateral; Z87.891 Personal history of nicotine dependence
CPT/HCPCS: 27265; 73501; 73502; 96374-59; 96375-59; 96376-59; 99152; 99283-25; J1170; J2405; J2704; J3010; J7030

== ENCOUNTER → 2024-12-20 | Outpatient (CLI) | payer OTHER ==
[2024-12-20 15:22] LABS: Bacterial Vaginosis PCR Negative (NEGATIVE); Candida Group, PCR NOT DETECTED (NOT DETECT); Candida glabrata-krusei, PCR NOT DETECTED (NOT DETECT)
== END ==
LOC: LAB SHORT 12:02 → LAB 12:02
PROVIDERS: Family Medicine
DX: N76.0 Acute vaginitis (principal)
CPT/HCPCS: 81515

== ENCOUNTER 2025-06-28 08:05 | Day surgery (SDC) | payer OTHER ==
[~2025-06-28 08:05] MED LIST changes: +Cosyntropin 0.25 MG / ML 1ML Vial IV SCH; -ESTRADIOL1 EAC2 TOP; +VIVELLE DOT TOP
[2025-06-28 08:28] VITALS: BP 106/69
== END 2025-06-28 09:48 | disposition home or self-care (01) ==
LOC: ATC 08:05
DX: R42 Dizziness and giddiness (principal); R00.2 Palpitations; I95.1 Orthostatic hypotension; R06.02 Shortness of breath; E78.5 Hyperlipidemia, unspecified; M19.90 Unspecified osteoarthritis, unspecified site; Z79.899 Other long term (current) drug therapy
CPT/HCPCS: 80400; 82533; 96374; J0834